=== PATIENT | female | born 1980 | race Caucasian/White ===

== ENCOUNTER 2016-06-03 02:10 | Emergency (ER) | payer OTHER ==
[~2016-06-03] VITALS: Ht 167.6 cm; Wt 101.2 kg
--- NOTE | 2016-06-03 02:40 | ED GI/GU/ABDOMINAL COMPLAINT ---
History of Present Illness General Chief Complaint: Abdominal Pain/Flank Pain Stated Complaint: ABD PAIN X'S 1 HR DENIES N/V/D Source: patient, family Exam Limitations: no limitations Vital Signs & Intake/Output Vital Signs & Intake/Output Vital Signs Date Time Temp Pulse Resp B/P Pulse O2 O2 Flow FiO2 Ox Delivery Rate 06/03 0647 97.0 59 16 118/62 100 Room Air 06/03 0220 97.0 70 20 135/87 99 Room Air Allergies Coded Allergies: NO KNOWN ALLERGIES (06/03/16) Triage Note: TRIAGE: PT TO ER C/C MID/UPPER ABD PAIN WITH RADIOATION TO BACK. 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 -N/V/D. LNBM THIS AFTERNOON. DENIES URINARY S/S. UNSURE OF LMP, ON DEPO Triage Nurses Notes Reviewed? yes ? N Is pt currently ? No Onset: Abrupt Duration: hour(s): (few) Timing: multiple episodes today Severity Numbers: 10 Location: epigastric, right upper quadrant Radiation: back Activities at Onset: sleep, ate dinner 10 pm Prior Abdominal Problems: none Associated Symptoms: abdominal pain, nausea/vomiting HPI: 35-year-old female presents to the ER with her for chief complaint of sudden onset of epigastric right upper quadrant pain radiating to the back which woke her up from sleep approximately 1 hour prior to arrival. Patient states the pain is severe with some associated nausea but no vomiting. Yesterday she had corned beef with cabbage as well as with some potatoes. She had cheese and crackers. No history of similar symptoms before. No alcohol consumption last night. She is unsure of because of history of depot injection use. (MARTI BANGURA,SEDA) Reconcile Medications Tramadol HCl (Ultram) 50 MG TABLET 1-2 TAB PO Q6P PRN PAIN (LELE BANGURA,JASSI Carlton) Past History Travel History Traveled to [place] past 21 day No Medical History Any Pertinent Medical History? 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 No (SEDA CHEW MD) Review of Systems Review of Systems Constitutional: Denies: chills, fever. EENTM: Reports: no symptoms. Respiratory: Denies: cough, short of breath, sputum production. Cardiovascular: Denies: chest pain, palpitations. GI: Reports: abdominal pain, nausea, vomiting. Genitourinary: Denies: discharge, dysuria, frequency, hematuria. Musculoskeletal: Reports: back pain. Skin: Reports: no symptoms. Neurological/Psychological: Reports: no symptoms. Hematologic/Endocrine: Denies: bruising, bleeding, polyuria, polydipsia. Immunologic/Allergic: Denies: splenectomy. All Other Systems: Reviewed and Negative (SEDA CHEW MD) Physical Exam Physical Exam General Appearance: well developed/nourished, alert, awake, anxious, moderate distress, obese Head: atraumatic, normal appearance Eyes: Bilateral: normal appearance, PERRL, EOMI. Ears, Nose, Throat, Mouth: hearing grossly normal, moist mucous membrane Neck: normal inspection, supple, normal alignment Respiratory: normal breath sounds, chest non-tender, no respiratory distress Cardiovascular: regular rate/rhythm Peripheral Pulses: 2+ radial (R), 2+ radial (L) Gastrointestinal: soft, abnormal bowel sounds, tenderness (EPIGASTRIC), POSITIVE MURPHYS Back: normal inspection, normal range of motion Extremities: normal range of motion Neurologic/Psych: no motor/sensory deficits, awake, alert, oriented x 3 Skin: intact, normal color, warm/dry Core Measures ACS in differential dx? No Severe Sepsis Present: No Septic Shock Present: No (SEDA CHEW MD) Progress Differential Diagnosis: biliary colic, cholecystitis, kidney stone, pancreatitis , peptic ulcer, PUD/GERD, UTI/pyelo Plan of Care: Orders Procedure Date/time Status URINALYSIS 06/03 244 Complete LIPASE 06/03 244 Complete HUMAN BETA HCG SCREEN 06/03 244 Complete COMPREHENSIVE METABOLIC PANEL 06/03 244 Complete CBC WITHOUT DIFFERENTIAL 06/03 244 Complete AMYLASE 06/03 244 Complete Laboratory Tests 06/03/16 0322: Urine Color YEL, Urine Clarity CLEAR, Urine pH 6.5, Ur Specific [place] 1.020, Urine Protein NEG, Urine Ketones NEG, Urine Nitrite NEG, Urine Bilirubin NEG, Urine Urobilinogen 0.2, Ur Leukocyte Esterase NEG, Ur Microscopic EXAM NOT REQUIRED, Urine Hemoglobin NEG, Urine Glucose NEG 06/03/16 0320: Anion Gap 11, Estimated GFR > 60, BUN/Creatinine Ratio 15.7, Glucose 106 H, Calcium 9.6, Total Bilirubin 0.5, AST 14, ALT 32, Alkaline Phosphatase 99, Total Protein 7.0, Albumin 4.2, Globulin 2.8, Albumin/Globulin Ratio 1.5, Amylase 38, Lipase 101, Total Beta HCG NEGATIVE, CBC w Diff NO MAN DIFF REQ, RBC 5.18, MCV 78.1 L, MCH 25.0 L, RDW 14.4, MPV 9.8, Gran % 65.3, Lymphocytes % 25.1, Monocytes % 6.9, Eosinophils % 2.3, Basophils % 0.4, Absolute Granulocytes 5.6, Absolute Lymphocytes 2.2, Absolute Monocytes 0.6, Absolute Eosinophils 0.2, Absolute Basophils 0, PUBS MCHC 32.0 L Pain free after IV morphine administration. Labs wnl. Ultrasound ordered. (MARTI BANGURA,SEDA) Diagnostic Imaging: Viewed by Me: Ultrasound. Discussed w/RAD: Ultrasound. Initial ED EKG: none Hand-Off Endorsed To: LELE BANGURA,JASSI Carlton Endorsed Time: 0700 Pending: ultrasound (MARTI BANGURA,SEDA) Radiology Impression: PATIENT: YASMANY GRIDER PRESENT AGE: 35 PATIENT ACCOUNT NO: [id number] : 82 LOCATION: [facility] ORDERING PHYSICIAN: SEDA CHEW MD SERVICE DATE: 06/03/16 EXAM TYPE: US - US-LIMITED ABDOMEN EXAMINATION: US ABDOMEN LIMITED CLINICAL INFORMATION: Right upper quadrant pain radiating to the back. COMPARISON: None TECHNIQUE: Real-time imaging of the right upper quadrant abdominal viscera. FINDINGS: PANCREAS: Normal. LIVER: Normal. The liver demonstrates normal size, contour and echogenicity. No focal lesion or intrahepatic biliary duct dilatation. GALLBLADDER: There are multiple gallstones seen in the gallbladder. The gallbladder wall is upper normal in size measuring 3 mm. No gallbladder wall edema or pericholecystic fluid is seen. COMMON BILE DUCT: Normal in caliber measuring 0.4 cm in diameter. RIGHT KIDNEY: Normal. No hydronephrosis. No renal calculi or focal parenchymal lesions. The kidney measures 10.3 cm in maximum dimension. FREE FLUID: None. IMPRESSION: Gallstones. Upper normal thickness gallbladder wall. DICTATED BY: JAMMIE CHOPRA MD DATE/TIME DICTATED:06/03/16934 SHEATHER:JUNIOR DATE/TIME TRANSCRIBED:06/03/16934 CONFIDENTIAL, DO NOT COPY WITHOUT APPROPRIATE AUTHORIZATION. <Electronically signed in Other Vendor System> SIGNED BY: JAMMIE CHOPRA MD 06/03/16 0939 Comments: 06/03/2016 10:03:12 AM patient signed out to me by Dr. Chew. I have updated Yasmany on her test results and she is comfortable at this time. There appears to be no indication of cholecystitis on her evaluation nor any indication of biliary obstruction. I feel she is stable for outpatient follow- up. (LELE BANGURA,JASSI Carlton) Departure Departure Condition: Stable Referrals: Adrian TORRE MD (PCP/Family) Departure Forms: Customer Survey General Discharge Information (MARTI BANGURA,SEDA) Departure Disposition: HOME OR SELF CARE Clinical Impression Primary Impression: Biliary colic Secondary Impressions: Gallstones Additional Instructions: Low-fat diet. Tramadol if needed for pain. Notify your primary care doctor of this emergency department visit and treatment plan on Sunday appointment if needed. If you have recurrent episodes of abdominal pain such as this, he might need an evaluation by a general surgeon for the removal of your gallbladder. Otherwise return if any concerns or sudden worsening. Please note that there might be incidental findings in your evaluation that are unrelated to the current emergency department visit. Please notify your primary care doctor about this emergency department visit in order to obtain and review all of the testing performed so that these incidental findings can be monitored as needed. If you had an x-ray performed, please understand that some fractures may not be seen on the initial set of x-rays. If your symptoms persist you might need a repeat set of x-rays to check for such a fracture. If you had a laceration evaluated, please understand that foreign bodies such as glass or wood may not be visible to the naked eye or on plain x-rays. If the wound becomes red, swollen, increasingly more painful or if there is any drainage from the wound, please have it reevaluated by a physician for the possibility of a retained foreign body. Thank you for choosing the [facility] Emergency Department for your care. It was a pleasure to serve you today. Jassi Strong M.D. [facility] Prescriptions: Current Visit Scripts Tramadol HCl (Ultram) 1-2 TAB PO Q6P PRN PAIN #16 TAB (LELE BANGURA,JASSI Carlton) Critical Care Note Critical Care Note Critical Care Time: 30-74 min (LELE BANGURA,JASSI Carlton)
[2016-06-03 03:28] LABS: ABSOLUTE BASOPHIL COUNT 0 /CUMM (0.0-0.2); ABSOLUTE EOSINOPHIL COUNT 0.2 /CUMM (0.0-0.7); ABSOLUTE GRANULOCYTE CT 5.6 /CUMM (1.4-6.5); ABSOLUTE LYMPH COUNT 2.2 /CUMM (1.2-3.4); ABSOLUTE MONOCYTE COUNT 0.6 /CUMM (0.10-0.60); BASOPHIL % 0.4 % (0.0-2.0); EOSINOPHIL % 2.3 % (0-5); GRANULOCYTE % 65.3 % (42.2-75.2); HEMATOCRIT 40.4 % (37-47); MEAN CORPUSCULAR VOLUME 78.1 FL (81.0-99.0); MEAN PLATELET VOLUME 9.8 FL (7.4-10.4); PLATELET COUNT 220 /CUMM (130-400); RBC DISTRIBUTION WIDTH 14.4 % (11.5-14.5); RED BLOOD CELL CT 5.18 /CUMM (4.20-5.40); WHITE BLOOD CELL COUNT 8.6 /CUMM (4.8-10.8)
--- NOTE | 2016-06-03 09:39 | ULTRASOUND REPORT ---
EXAMINATION: US ABDOMEN LIMITED CLINICAL INFORMATION: Right upper quadrant pain radiating to the back. COMPARISON: None TECHNIQUE: Real-time imaging of the right upper quadrant abdominal viscera. FINDINGS: PANCREAS: Normal. LIVER: Normal. The liver demonstrates normal size, contour and echogenicity. No focal lesion or intrahepatic biliary duct dilatation. GALLBLADDER: There are multiple gallstones seen in the gallbladder. The gallbladder wall is upper normal in size measuring 3 mm. No gallbladder wall edema or pericholecystic fluid is seen. COMMON BILE DUCT: Normal in caliber measuring 0.4 cm in diameter. RIGHT KIDNEY: Normal. No hydronephrosis. No renal calculi or focal parenchymal lesions. The kidney measures 10.3 cm in maximum dimension. FREE FLUID: None. IMPRESSION: Gallstones. Upper normal thickness gallbladder wall.
[2016-06-03] MEDS ORDERED: ULTRAM50 M1 PO (10:05)
[2016-06-03 10:09] VITALS: BP 126/85
== END 2016-06-03 10:09 ==
LOC: ERH 02:10
PROVIDERS: Emergency Medicine
DX: K80.70 Calculus of gallbladder and bile duct without cholecystitis without obstruction (principal)
CPT/HCPCS: 81003; 96374; 96375; J2405

== ENCOUNTER 2016-06-12 00:54 | Emergency (ER) | payer OTHER ==
[~2016-06-12] VITALS: Ht 167.6 cm; Wt 101.2 kg
[~2016-06-12 00:54] MED LIST: ULTRAM50 M1 PO
--- NOTE | 2016-06-12 01:13 | ED GI/GU/ABDOMINAL COMPLAINT ---
History of Present Illness General Chief Complaint: Abdominal Pain/Flank Pain Stated Complaint: PER PT C/O gall STONES SEEN FOR SAME LAST WK Source: patient Exam Limitations: no limitations Vital Signs & Intake/Output Vital Signs & Intake/Output Vital Signs Date Time Temp Pulse Resp B/P Pulse O2 O2 Flow FiO2 Ox Delivery Rate 06/12 0105 98.1 66 18 141/91 99 Room Air Allergies Coded Allergies: egg (unknown 06/12/16) milk (unknown 06/12/16) Reconcile Medications Ondansetron (Zofran Odt) 4 MG TAB.RAPDIS 1 TAB SL TID PRN nausea Tramadol HCl (Ultram) 50 MG TABLET 1-2 TAB PO Q6P PRN PAIN Triage Note: TRIAGE: PATIENT TO ER FROM HOME REPORTS SEEN HERE SUNDAY FOR GALLSTONES, RETURNS TODAY FOR SAME. +N AND URGE FOR DIARRHEA. PATIENT REPORTS 1 EPISODE DIARRHEA TODAY AND YESTERDAY. PATIENT UNSURE OF LAST MENSES, CURRENTLY ON DEPO SHOT FOR CONTROL. Triage Nurses Notes Reviewed? yes ? n Is pt currently ? No Onset: Gradual Duration: hour(s): Timing: recent history Quality/Severity: cramping Location: epigastric, right upper quadrant Radiation: shoulder Activities at Onset: "I ate at [employer].... avacados, chicken..." Prior Abdominal Problems: similar symptoms Modifying Factors: Worsens With: eating. Associated Symptoms: abdominal pain, nausea/vomiting HPI: 35 yo woman h/o gall stones, presents with mid epigastric and right upper quadrant abdominal pain x 3-4 hours consistent with her prior episode of discomfort the other week which was attributed to gall stones. She notes that she ate dinner at [employer], "chicken... avocados.... vegetables... rice." Past History Travel History Traveled to [place] past 21 day No Medical History Any Pertinent Medical History? 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 No Review of Systems Review of Systems Constitutional: Reports: no symptoms. EENTM: Reports: no symptoms. Respiratory: Reports: no symptoms. Cardiovascular: Reports: no symptoms. GI: Reports: no symptoms. Genitourinary: Reports: no symptoms. Musculoskeletal: Reports: no symptoms. Skin: Reports: no symptoms. Neurological/Psychological: Reports: no symptoms. Hematologic/Endocrine: Reports: no symptoms. Immunologic/Allergic: Reports: no symptoms. All Other Systems: Reviewed and Negative Physical Exam Physical Exam General Appearance: well developed/nourished, mild distress Head: atraumatic, normal appearance Eyes: Bilateral: normal appearance. Ears, Nose, Throat, Mouth: hearing grossly normal, dental injury, moist mucous membrane Neck: normal inspection, supple, full range of motion Respiratory: normal breath sounds, chest non-tender, no respiratory distress, quiet respiration, lungs clear Cardiovascular: regular rate/rhythm Gastrointestinal: normal bowel sounds, soft, mid epigastric tenderness to palpation. minimal ruq tenderness to palpation. Back: normal inspection Extremities: normal range of motion Neurologic/Psych: no motor/sensory deficits, awake, alert, oriented x 3 Skin: intact, normal color, warm/dry Core Measures ACS in differential dx? No Severe Sepsis Present: No Septic Shock Present: No Progress Differential Diagnosis: biliary colic, cholecystitis, gastritis Plan of Care: Orders Procedure Date/time Status URINALYSIS 06/12 112 Complete LIPASE 06/12 112 Complete HEPATIC FUNCTION PANEL 06/12 112 Complete HUMAN BETA HCG SCREEN 06/12 112 Complete CBC WITHOUT DIFFERENTIAL 06/12 112 Complete BASIC METABOLIC PANEL 06/12 112 Complete AMYLASE 06/12 112 Complete Laboratory Tests 06/12/16 0239: Urine Color YEL, Urine Clarity CLEAR, Urine pH 6.0, Ur Specific [place] 1.025, Urine Protein NEG, Urine Ketones TRACE H, Urine Nitrite NEG, Urine Bilirubin NEG, Urine Urobilinogen 0.2, Ur Leukocyte Esterase NEG, Ur Microscopic EXAM NOT REQUIRED, Urine Hemoglobin NEG, Urine Glucose NEG 06/12/16 0121: Anion Gap 9, Estimated GFR > 60, BUN/Creatinine Ratio 20.0, Glucose 111 H, Calcium 9.6, Total Bilirubin 0.4, Direct Bilirubin 0.3, AST 15, ALT 45, Alkaline Phosphatase 94, Total Protein 7.4, Albumin 4.3, Amylase 34, Lipase 79, Total Beta HCG NEGATIVE, CBC w Diff NO MAN DIFF REQ, RBC 5.24, MCV 77.6 L, MCH 25.2 L, RDW 14.2, MPV 9.6, Gran % 68.5, Lymphocytes % 22.0, Monocytes % 6.8, Eosinophils % 1.8, Basophils % 0.9, Absolute Granulocytes 6.4, Absolute Lymphocytes 2.1, Absolute Monocytes 0.6, Absolute Eosinophils 0.2, Absolute Basophils 0.1, PUBS MCHC 32.4 L Initial ED EKG: none Departure Departure Disposition: HOME OR SELF CARE Condition: Stable Clinical Impression Primary Impression: Abdominal pain Secondary Impressions: Biliary colic Referrals: YELITZA BANGURA,MMendel ALVAREZ (PCP/Family) Departure Forms: Customer Survey General Discharge Information Prescriptions: Current Visit Scripts Ondansetron (Zofran Odt) 1 TAB SL TID PRN nausea #10 TAB Comments 06/12/16, 2:55... pt feeling well... labs benign... likely biliary colic... pt to follow up with dr. davidson.
[2016-06-12 01:34] LABS: ABSOLUTE BASOPHIL COUNT 0.1 /CUMM (0.0-0.2); ABSOLUTE EOSINOPHIL COUNT 0.2 /CUMM (0.0-0.7); ABSOLUTE GRANULOCYTE CT 6.4 /CUMM (1.4-6.5); ABSOLUTE LYMPH COUNT 2.1 /CUMM (1.2-3.4); ABSOLUTE MONOCYTE COUNT 0.6 /CUMM (0.10-0.60); BASOPHIL % 0.9 % (0.0-2.0); EOSINOPHIL % 1.8 % (0-5); GRANULOCYTE % 68.5 % (42.2-75.2); HEMATOCRIT 40.6 % (37-47); MEAN CORPUSCULAR HGB 25.2 PG (27.0-31.0); MEAN CORPUSCULAR HGB CONC 32.4 G/DL (33.0-37.0); MEAN CORPUSCULAR VOLUME 77.6 FL (81.0-99.0); MEAN PLATELET VOLUME 9.6 FL (7.4-10.4); PLATELET COUNT 239 /CUMM (130-400); RBC DISTRIBUTION WIDTH 14.2 % (11.5-14.5); RED BLOOD CELL CT 5.24 /CUMM (4.20-5.40); WHITE BLOOD CELL COUNT 9.4 /CUMM (4.8-10.8)
[2016-06-12] MEDS ORDERED: ZOFRAN ODT4 M1 SL (02:55)
[2016-06-12 03:00] VITALS: BP 138/86
== END 2016-06-12 03:04 ==
LOC: ERH 00:54
PROVIDERS: Pediatrics
DX: K80.50 Calculus of bile duct without cholangitis or cholecystitis without obstruction (principal)
CPT/HCPCS: 81003; 96374; 96375; J0131; J1885

== ENCOUNTER → 2016-07-12 | Day surgery (SDC) | payer OTHER ==
[~2016-07-12] VITALS: Ht 167.6 cm; Wt 102.1 kg
[~2016-07-12] MED LIST changes: +ZOFRAN ODT4 M1 SL
--- NOTE | 2016-07-12 11:54 | Operative Report ---
Operative/Inv Procedure Report Surgery Date: 07/12/16 Name of Procedure: Laparoscopic cholecystectomy Pre-Operative Diagnosis: Biliary colic Post-Operative Diagnosis: Same Estimated Blood Loss: scant Surgeon/Water Treatment Plant Supervisor: FADI BANGURA,SHERRY Mayer/ALPHONSE Mariee Anesthesia: general endotracheal tube Drains: None Specimens: Gallbladder Operative/Procedure Note Note: After informed consent patient is brought to the operating room and laid supine. General anesthesia was obtained and her abdomen was prepped and draped. The skin below the umbilicus infiltrated with local anesthesia and a curvilinear incision made sharply. We came down through the subcutaneous tissues bluntly and grasped the fascia with [place]'s. A fasciotomy was created sharply and stay sutures placed. The peritoneum was entered sharply and a blunt [place]choa port was placed. Pneumoperitoneum was achieved. 3, 5 mm ports were placed in the epigastrium and right upper quadrant after local anesthesia was instilled and under direct vision the camera. She's placed in reverse Trendelenburg and rotated towards the left. The gallbladder is identified. It was grasped at the dome and retracted towards the head. Infundibulum was then grasped. Adhesions to the undersurface were taken down with blunt and cautery dissection. We dissected both sides the triangle [place] peritoneal tissue with cautery. The artery was medial and its normal anatomic position. It was cauterized medially to allow it to be mobilized away from the duct. [place] was cleared of areolar tissue with cautery. The arteries and duct were doubly ligated with clips. Gallbladder is removed from the fossa electrocautery. It was placed in Endo Catch bag and cinched up. Right upper quadrant was and suction irrigated normal saline. Hemostasis achieved with cautery. The ports were then removed and the gallbladder delivered and passed off the field. The fascia was closed with 0 Vicryl suture. Skin incisions closed with 4-0 Vicryl. Steri-Strips and sterile dressing applied. Sponge and needle counts are correct. CC: YELITZA BANGURA,Adrian ALVAREZ
== END ==
LOC: STS 02:14
DX: K80.21 Calculus of gallbladder without cholecystitis with obstruction (principal); I10 Essential (primary) hypertension
CPT/HCPCS: 81025; 88304; J0131; J0690; J2250; J3250